=== PATIENT | male | born 1995 | race American Indian/Alaskan Native ===

== ENCOUNTER 2024-04-12 13:48 | Inpatient (IN) | payer OTHER ==
[2024-04-12 14:23] VITALS: BMI 20.2
[2024-04-12] MEDS ORDERED: guaiFENesin 600 MG TABLET.ER (FP) PO PRN (14:52)
[2024-04-12] MEDS ORDERED: LOPERAMIDE HCL 2 MG CAPSULE PO PRN (14:52)
[2024-04-12] MEDS ORDERED: ONDANSETRON *ODT* 4 MG TABLET SL PRN (14:52)
[2024-04-12] MEDS ORDERED: MAG HYDROX/AL HYDROX/SIMETH 30 ML UNIT-DOSE CUP PO PRN (14:52)
[2024-04-12] MEDS ORDERED: P-EPHED 60MG/TRIPROLIDI 2.5MG TABLET PO PRN (14:52)
[2024-04-12] MEDS ORDERED: MAGNESIUM HYDROX 2400MG/30ML ORAL SUSPENSION 30 ML CUP PO PRN (14:52)
[2024-04-12] MEDS ORDERED: BENZOCAINE/MENTHOL (CHLORASEPTIC ) LOZENGE MM PRN (14:52)
[2024-04-12] MEDS ORDERED: POLYETHYLENE GLYCOL (HEALTHYLAX) 3350 17 GM PACKET PO PRN (14:52)
[2024-04-12] MEDS ORDERED: BISMUTH SUBSALICYLATE 524 MG/30 ML PO PRN (14:52)
[2024-04-12] MEDS ORDERED: BENZONATATE 200 MG CAPSULE PO PRN (14:52)
[2024-04-12] MEDS ORDERED: METHOCARBAMOL 500 MG TABLET PO PRN (14:52)
[2024-04-12] MEDS ORDERED: IBUPROFEN 400 MG TABLET (FP) PO PRN (14:52)
[2024-04-12] MEDS ORDERED: NALOXONE (NARCAN) HCL 4 MG/0.1 ML SPRAY NS PRN (14:52)
[2024-04-12] MEDS ORDERED: DICYCLOMINE HCL 10 MG CAPSULE PO PRN (14:52)
[2024-04-12] MEDS: ACETAMINOPHEN 325 MG TABLET (FP) PO PRN (16:25)
[2024-04-12] MEDS: chlordiazePOXIDE HCL 25 MG CAPSULE PO SCH (16:25)
[2024-04-12] MEDS: BUPRENORPHINE/NALOXONE 4 MG/1 MG FILM PACKET SL SCH (18:04)
[2024-04-12] MEDS: chlordiazePOXIDE HCL 25 MG CAPSULE PO PRN (19:13)
[2024-04-12] MEDS: MELATONIN 5 MG TABLETS PO SCH (22:44)
[2024-04-12] MEDS: PHENobarbital 30 MG TABLET PO SCH (22:45)
[2024-04-12] MEDS: THIAMINE 100 MG TABLET PO SCH (22:45)
[2024-04-13] MEDS: PRENATAL VITAMINS W/ FOLIC ACID TABLET (FP) PO SCH (10:02)
[2024-04-13] MEDS: DEXTROAMPHETAMINE/AMPHETAMINE 10 MG CAP.ER.24H PO SCH (11:25)
[2024-04-13] MEDS: ESCITALOPRAM OXALATE 10 MG TABLET PO SCH (11:43)
[2024-04-13 11:59] LABS: HEMOGLOBIN 15.3 GM/dL (11.7-16.9); MCH 31.4 pg (25.7-33.7); MEAN CELL VOLUME 92.4 fl (80-96); PLATELET COUNT 337 10^3/uL (134-434); RBC 4.87 M/mm3 (4.00-5.60); RDW 14.4 % (11.9-15.9); WHITE BLOOD COUNT 4.8 K/mm3 (4.0-10.0)
[2024-04-13 12:11] LABS: CHLORIDE 99 mmol/L (98-107); POTASSIUM 4.1 mmol/L (3.5-5.1); SODIUM 137 mmol/L (136-145)
[2024-04-13 12:19] LABS: ALBUMIN 4.6 g/dl (3.4-5.0); ANION GAP 7 mmol/L (4-13); BLOOD UREA NITROGEN 17.4 mg/dL (7-18); CALCIUM 9.9 mg/dL (8.5-10.1); CO2 31 mmol/L (21-32); GLUCOSE,RANDOM 99 mg/dL (74-106)
[2024-04-13 12:22] LABS: CREATININE 0.8 mg/dL (0.55-1.3); SGPT/ALT 38 U/L (13-61)
[2024-04-13 12:23] LABS: SGOT/AST 29 U/L (15-37)
[2024-04-13 12:24] LABS: TOT PROT 8.2 g/dl (6.4-8.2)
[2024-04-13 12:25] LABS: ALK PHOS 107 U/L (45-117)
[2024-04-13 12:32] LABS: BILIRUBIN,TOTAL 0.7 mg/dL (0.2-1)
[2024-04-13] MEDS ORDERED: NALOXONE (NYS OPIOID OVERDOSE PROGRAM) 4 MG/0.1 ML SPRAY NS SCH (13:45)
[2024-04-13 18:24] VITALS: RESP 17
[2024-04-13] MEDS: IBUPROFEN 600 MG TABLET (FP) PO PRN (18:30)
[2024-04-13] MEDS: BACITRACIN 0.9 GM PACKET TP SCH (18:30)
[2024-04-13] MEDS: hydrOXYzine PAMOATE 25 MG CAPSULE (FP) PO PRN (18:31)
[2024-04-13] MEDS: ASPIRIN 325 MG ENTERIC COATED TABLET (FP) PO ONE (19:12)
[2024-04-13 21:31] VITALS: BP 137/87; PULSE 97; TEMP 97.6
[2024-04-14] MEDS ORDERED: chlordiazePOXIDE HCL 25 MG CAPSULE PO SCH (05:00)
[2024-04-15] MEDS ORDERED: chlordiazePOXIDE HCL 10 MG CAPSULE PO PRN
[2024-04-15] MEDS ORDERED: chlordiazePOXIDE HCL 10 MG CAPSULE PO SCH (05:00)
[2024-04-16] MEDS ORDERED: chlordiazePOXIDE HCL 10 MG CAPSULE PO SCH (05:00)
[2024-04-17] MEDS ORDERED: chlordiazePOXIDE HCL 10 MG CAPSULE PO ONE (05:00)
== END 2024-04-13 23:00 | disposition left against medical advice (07) | DRG 770 ==
LOC: YASAS 13:48 → Y6N 15:34
PROVIDERS: ADMIT Allergy & Immunology; ATTEND Allergy & Immunology
PROC: HZ2ZZZZ Detoxification Services for Substance Abuse Treatment (ICD-10-PCS; principal; 2024-04-12)
DX: F10.230 Alcohol dependence with withdrawal, uncomplicated (principal); F11.20 Opioid dependence, uncomplicated; F41.9 Anxiety disorder, unspecified; F90.9 Attention-deficit hyperactivity disorder, unspecified type; G40.909 Epilepsy, unspecified, not intractable, without status epilepticus; G25.81 Restless legs syndrome
CPT/HCPCS: 36415; 80053; 80305; 80307; 85027; 86780; 93005; 93010